=== PATIENT | male | born 1950 | race Caucasian/White ===

== ENCOUNTER 2016-11-28 17:10 | Inpatient (IN) ==
[2016-11-28] MEDS ORDERED: GLUCAGON 1 MG VIAL IM PRN (18:41)
[2016-11-28] MEDS ORDERED: DEXTROSE 50% 25 GM/50 ML VIAL IV PRN (18:41)
[2016-11-28] MEDS: SODIUM CHLORIDE 0.9% 1,000 ML IV SCH (19:16)
[2016-11-28] MEDS: CEFTAROLINE 600 MG in SODIUM CHLORIDE 0.9% 100 ML IV SCH (19:45)
[2016-11-28 19:53] LABS: Basophils % 0.2 % (0.0-0.8); Eosinophils # 0.1 10*3/uL (0.0-0.87); Eosinophils % 1.1 % (0.00-10.9); Hematocrit 34.2 VOL% (42.0-52.0); Hemoglobin 11.6 GM/DL (14.0-18.0); Immature Granulocytes % 0.4 %; Immature Granulocytes Absolute 0.04 #; Lymphocytes # 1.5 10*3/uL (1.4-4.0); Lymphocytes % 14.3 % (21.2-54.2); Mean Corpuscular HGB Conc 33.9 GM/DL (32-36); Mean Corpuscular Hemoglobin 33 PG (27-34); Mean Corpuscular Volume 96.1 FL (87-102); Mean Platelet Volume 9.9 FL (9.6-12.0); Monocytes # 0.7 10*3/uL (0.11-0.8); Monocytes % 6.6 % (1.7-12.7); Neutrophils # 7.9 10*3/uL (1.4-7.4); Neutrophils % 77.4 % (38.7-73.9); Platelet Count 261 T/CUMM (130-400); Red Blood Count 3.56 MC/CUMM (3.8-5.5); Red Cell Distribution Width 11.8 % (9.3-17.3); White Blood Count 10.3 T/CUMM (4-12)
[2016-11-28] MEDS: INSULIN REGULAR 100 UNIT/ML SUBCUT SCH (21:43)
[2016-11-29 05:28] LABS: Calcium 8.3 MG/DL (8.5-10.1); Osmolality,Calculated 284.4 MOS/KG (273-304); Potassium 4.7 MMOL/L (3.5-5.1)
[2016-11-29] MEDS ORDERED: FAMOTIDINE 20 MG TABLET PO ONE (05:53)
[2016-11-29] MEDS: SODIUM CHLORIDE 0.9% 1,000 ML IV SCH (06:22)
[2016-11-29] MEDS: CEFTAROLINE 600 MG in SODIUM CHLORIDE 0.9% 100 ML IV SCH ×2 (06:37→18:07)
--- NOTE | 2016-11-29 07:12 | Ultrasound Report ---
Right lower extremity venous Doppler with kincaid scale, Spectral Doppler and color-flow analysis performed and interpreted. Indication: Right leg pain and swelling. Scanning over the right common femoral vein, superficial femoral vein, greater saphenous vein and popliteal vein demonstrates normal compressibility, color flow, and augmentation. Impression: No evidence of right lower extremity deep venous thrombosis. PROCEDURE INTERPRETED AT [facility] DEPARTMENT OF RADIOLOGY Final Report Signed by: Dr. Maribel White
--- NOTE | 2016-11-29 08:16 | EKG Report ---
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
[2016-11-29] MEDS: INSULIN REGULAR 100 UNIT/ML SUBCUT SCH ×4 (08:25→20:31)
[2016-11-29] MEDS ORDERED: LIDOCAINE 2% 5 ML VIAL ONE (10:37)
[2016-11-29] MEDS ORDERED: PROPOFOL 200 MG/20 ML VIAL IV ONE (10:37)
[2016-11-29] MEDS ORDERED: ONDANSETRON 4 MG/2 ML VIAL ONE (10:37)
--- NOTE | 2016-11-29 11:04 | Operative Note ---
Date of procedure: 11/29/16 Procedure: Dr. Machado operative report Sivakumar Rojo. 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 Description of the procedure after the patient received sedation his right foot was prepped with Hibiclens and draped in usual fashion 1% plain lidocaine is infiltrated for digital block using 10 cc and then amputate the toe just at its junction with the forefoot there is some necrotic tissue at this level this is needed in the region free of the proximal phalanx is amputated up to near its joint but not through the joint. Cultures are taken the toe was sent to pathology hemostasis is adequate although there is bleeding from the skin edges. Wound was irrigated and packed with dry gauze and covered with cast padding blood loss estimated at less than 5 cc sponge counts are correct. Surgeon / Physician: Kirill Machado Results - Labs CBC & BMP: 11/28/16 19:37 11/29/16 03:39 Discharge Plan - Discharge Medications No Action Aspirin [Ecotrin] 81 mg PO BEDTIME Gabapentin Cap/Tab [Neurontin Cap/Tab] 300 mg PO QID Cilostazol 100 mg PO BID Lisinopril 40 mg PO DAILY sitaGLIPtin [Januvia] 100 mg PO DAILY Canagliflozin [Invokana] 300 mg PO DAILY Metformin HCl 1,500 mg PO DAILY W/BREAKFAST Metformin HCl 1,000 mg PO DAILY W/SUPPER Ranitidine Tab [Zantac Tab] 150 mg PO DAILY PRN PRN Reason: Indigestion Atorvastatin [Lipitor] 20 mg PO DAILY Insulin Detemir [Levemir FlexPen] 23 unit SUBCUT DAILY Clopidogrel [Plavix] 75 mg PO DAILY #60 each - Follow Up or Referral - Forms/Instructions
[2016-11-29] MEDS ORDERED: fentaNYL 100 MCG/2 ML VIAL ONE (11:49)
[2016-11-29] MEDS ORDERED: MIDAZOLAM 2 MG/2 ML VIAL ONE (11:49)
[2016-11-29] MEDS ORDERED: KETAMINE 500 MG/10 ML VIAL ONE (11:49)
--- NOTE | 2016-11-29 17:12 | Event Note ---
Russell is awake alert doing well tolerating suffered no active ongoing bleeding.
--- NOTE | 2016-11-29 20:51 | Anesthesia Post-Op ---
Anesthesia Post OP - Post Ansesthetic Evaluation Patient seen in post op: Yes Resp: within normal limits CV: within normal limits Mental: within normal limits Temp: within normal limits [id number]: within normal limits Nausea and Vomiting: within normal limits Pain: within normal limits
[2016-11-30] MEDS: CEFTAROLINE 600 MG in SODIUM CHLORIDE 0.9% 100 ML IV SCH ×2 (06:07→18:32)
[2016-11-30] MEDS: INSULIN REGULAR 100 UNIT/ML SUBCUT SCH ×4 (08:34→21:13)
--- NOTE | 2016-11-30 10:54 | Pathology Report from [facility] ---
ACCESSION # : [id number] PATIENT NAME : Manju Anne ORDERING DR : ANDREW KUMAR MD CLINICAL HX: Gangrene POST-OP DX: Same SPECIMEN INFO: RT 2nd toe GROSS DESCRIPTION: Received in formalin labeled "MANJU ANNE" is a toe and distal metatarsal measuring 4.2 x 1.9 cm. The skin is firm leathery black and gangrenous appearing with skin sloughing present. Also in the specimen container are two red leach tissue fragments measuring together 1.7 x 1 cm. Mixer Slagman gangrenous tissue is submitted in one cassette. DIAGNOSIS FOR MANJU ANNE: RIGHT 2ND TOE, AMPUTATION: Gangrene. SERVICE DATE: 11/29/2016 REPORT DATE: 11/30/2016 PATHOLOGIST: Jennifer Garnett
--- NOTE | 2016-11-30 12:35 | Event Note ---
Mr. Anne is foot looks a bit better today and the wound is roller cleaner and I think will heal with the current dressing regimen. Cultures are showing gram- negative rods we do not have the formal sensitivity at this point. We will keep him until I have a definite sensitivity and then we can look into possible discharge on oral antibiotic.
[2016-11-30] MEDS: SODIUM HYPOCHLORITE 0.25% IRRIG 473 ML BOTTLE TOP SCH (12:45)
[2016-12-01] MEDS: CEFTAROLINE 600 MG in SODIUM CHLORIDE 0.9% 100 ML IV SCH (06:27)
--- NOTE | 2016-12-01 08:45 | Event Note ---
Mr.: 0 for right foot looks much better much less erythema of the amputated second toe is much cleaner industrial and is actually starting to contract. Cultures still are only showing gram-negative rods actually want to wait until I have formal cultures and sensitivities to determine an appropriate home antibiotic perhaps I can get him home tomorrow
[2016-12-01] MEDS: INSULIN REGULAR 100 UNIT/ML SUBCUT SCH ×2 (09:09→11:41)
[2016-12-01] MEDS: SODIUM HYPOCHLORITE 0.25% IRRIG 473 ML BOTTLE TOP SCH (09:10)
--- NOTE | 2016-12-01 10:23 | Discharge Summary ---
Hospital Course - Hospital Course Hospital Course: : Was admitted with an acutely infected and gangrenous right second toe he was placed on Teflaro empirically and had a right second toe amputation on Monday his foot is looking much better his blood sugars are under good control we now have a culture showing Proteus and a microcytic drip with multiple sensitivities. I think at this point in time I can discharge him and will use Cipro for the better coverage from IV to p.o. I have discussed with him wound care and exercise restrictions and plan recovery in follow-up I will see him in the office next week. Specialty Discharge - Follow Up or Referrals Follow up with: Kirill Machado MD [Physician] - Discharge Plan - Discharge Data Disposition: Disch To Home/Self Care Condition at Discharge: Stable Discharge Diet: diabetic diet Activity: increase activity as tolerated, no prolonged standing Hygiene: may shower Weight Bearing at Discharge: weight bear as tolerated, partial weight bearing Driving: not until seen by doctor Contact your physician if you experience:: fever over 101, Redness or swelling, Bleeding - Discharge Medications New Ciprofloxacin Tab [Cipro Tab] 500 mg PO BID #20 tablet HYDROcodone/ACETAMIN 5-325 [Hammond 5-325] 1 tablet PO Q4H PRN #20 tablet PRN Reason: Pain Moderate (4-7) Continue Aspirin [Ecotrin] 81 mg PO BEDTIME Gabapentin Cap/Tab [Neurontin Cap/Tab] 300 mg PO QID Cilostazol 100 mg PO BID Lisinopril 40 mg PO DAILY sitaGLIPtin [Januvia] 100 mg PO DAILY Canagliflozin [Invokana] 300 mg PO DAILY Metformin HCl 1,500 mg PO DAILY W/BREAKFAST Metformin HCl 1,000 mg PO DAILY W/SUPPER Ranitidine Tab [Zantac Tab] 150 mg PO DAILY PRN PRN Reason: Indigestion Atorvastatin [Lipitor] 20 mg PO DAILY Insulin Detemir [Levemir FlexPen] 23 unit SUBCUT DAILY Clopidogrel [Plavix] 75 mg PO DAILY #60 each - Follow Up or Referral Follow Up: Kirill Machado MD [Physician] - 1 Week - Forms/Instructions Exam - Constitutional Vitals: Period Temp Pulse Resp BP Sys/Sawyer Pulse Ox Last 24 Hr 97.1 F-98.7 F 57-69 18-20 118-158/53-73 91-99 Discharge Results Procedures and tests throughout hospitalization: Pending Orders 11/29/16 Abscess Culture Routine Anaerobic Culture Routine Labs on day of discharge: Labs from last 24 hours 12/01/16 11/30/16 11/30/16 06:59 20:18 15:44 POC Glucose 138 H 264 H 219 H 11/30/16 11:24 POC Glucose 188 H Preliminary micro results at discharge 11/29/16 Unknown Abscess Culture - Preliminary Toe - Right Second Proteus mirabilis Gram Positive Cocci Microstrep plus panel 1 DS: Provider Date of admission: 11/28/16 17:20 Primary care physician: . No PCP Attending physician on admission: Kirill Machado MD Discharging clinician: Kirill Machado MD
[2016-12-01 11:58] VITALS: BP 138/60
== END 2016-12-01 12:40 | disposition home or self-care (01) | DRG 256 ==
LOC: N.3E 17:20
PROVIDERS: ADMIT Surgery; ATTEND Surgery

== ENCOUNTER 2018-02-22 16:32 | Inpatient (IN) ==
[2018-02-22] MEDS ORDERED: VANCOMYCIN INJ 1,500 MG in SODIUM CHLORIDE 0.9% 250 ML IV STA (16:52)
[2018-02-22] MEDS ORDERED: PIPERACILLIN/TAZOBACTAM 3,375 MG in SODIUM CHLORIDE 0.9% 100 ML IV STA ×2 (16:52→17:00)
[2018-02-22] MEDS ORDERED: ONDANSETRON 4 MG/2 ML VIAL IV PRN (16:55)
[2018-02-22] MEDS ORDERED: GLUCAGON 1 MG VIAL IM PRN (16:55)
[2018-02-22] MEDS ORDERED: DEXTROSE 50% 25 GM/50 ML VIAL IV PRN (16:55)
[2018-02-22] MEDS ORDERED: ACETAMINOPHEN 325 MG TABLET PO PRN (16:55)
[2018-02-22] MEDS ORDERED: VANCOMYCIN INJ 1,500 MG in SODIUM CHLORIDE 0.9% 500 ML IV STA (17:12)
[2018-02-22] MEDS ORDERED: FAMOTIDINE 20 MG TABLET PO PRN (17:28)
[2018-02-22 18:03] LABS: Alanine Aminotransferase 96 U/L (16-61); Albumin 2.8 G/DL (3.4-5.0); Alkaline Phosphatase 166 U/L (45-117); Aspartate Amino Transferase 42 U/L (0-37); Bilirubin,Total < 0.39 MG/DL (0.2-1.0); Blood Urea Nitrogen 25 MG/DL (7-18); Calcium 9.2 MG/DL (8.5-10.1); Glucose 194 MG/DL (74-106); Osmolality,Calculated 278.1 MOS/KG (273-304); Potassium 4.8 MMOL/L (3.5-5.1); Sodium 135 MMOL/L (136-145); Total Protein 7.8 G/DL (6.4-8.3)
[2018-02-22 18:05] LABS: Basophils % 0.4 % (0.0-0.8); Eosinophils # 0.1 10*3/uL (0.0-0.87); Hemoglobin 11.4 GM/DL (14.0-18.0); Immature Granulocytes % 0.5 %; Immature Granulocytes Absolute 0.05 #; Lymphocytes # 1.8 10*3/uL (1.4-4.0); Lymphocytes % 17.2 % (21.2-54.2); Mean Corpuscular HGB Conc 34.5 GM/DL (32-36); Mean Corpuscular Hemoglobin 32 PG (27-34); Mean Corpuscular Volume 93.5 FL (87-102); Mean Platelet Volume 10.3 FL (9.6-12.0); Monocytes # 0.7 10*3/uL (0.11-0.8); Monocytes % 6.8 % (1.7-12.7); Neutrophils # 7.8 10*3/uL (1.4-7.4); Neutrophils % 74.1 % (38.7-73.9); Platelet Count 341 T/CUMM (130-400); Red Blood Count 3.53 MC/CUMM (3.8-5.5); Red Cell Distribution Width 12.5 % (9.3-17.3); White Blood Count 10.5 T/CUMM (4-12)
[2018-02-22] MEDS: metFORMIN 500 MG TABLET PO SCH (21:58)
[2018-02-22] MEDS: GABAPENTIN 600 MG TABLET PO SCH (22:01)
[2018-02-22] MEDS: ASPIRIN EC 81 MG TABLET PO SCH (22:01)
[2018-02-22] MEDS: INSULIN REGULAR 100 UNIT/ML SUBCUT SCH (22:01)
[2018-02-22] MEDS: INSULIN GLARGINE 100 UNIT/ML SUBCUT SCH (22:02)
[2018-02-23] MEDS: PIPERACILLIN/TAZOBACTAM 3,375 MG in SODIUM CHLORIDE 0.9% 100 ML IV SCH ×3 (01:05→20:36)
[2018-02-23] MEDS: VANCOMYCIN INJ 1,500 MG in SODIUM CHLORIDE 0.9% 500 ML IV SCH ×2 (06:00→16:35)
[2018-02-23] MEDS: GABAPENTIN 600 MG TABLET PO SCH ×2 (08:29→20:37)
[2018-02-23] MEDS: PANTOPRAZOLE 40 MG TABLET PO SCH (08:29)
[2018-02-23] MEDS: INSULIN GLARGINE 100 UNIT/ML SUBCUT SCH ×2 (08:29→20:38)
[2018-02-23] MEDS: INSULIN REGULAR 100 UNIT/ML SUBCUT SCH ×4 (08:29→20:38)
[2018-02-23] MEDS: metFORMIN 500 MG TABLET PO SCH (08:30)
[2018-02-23] MEDS: ATORVASTATIN 20 MG TABLET PO SCH (08:30)
[2018-02-23] MEDS: glipiZIDE 5 MG TABLET PO SCH ×2 (08:30→16:35)
[2018-02-23] MEDS: LISINOPRIL 20 MG TABLET PO SCH (09:00)
[2018-02-23] MEDS ORDERED: MORPHINE 4 MG/1 ML VIAL IV PRN (09:26)
[2018-02-23] MEDS ORDERED: LIDOCAINE 1% 20 ML VIAL ONE (10:40)
[2018-02-23] MEDS ORDERED: BUPIVACAINE MPF 0.25% 30 ML VIAL ONE (10:40)
[2018-02-23] MEDS ORDERED: SEVOFLURANE 1 UNIT/15 MINUTE INH ONE (11:40)
[2018-02-23] MEDS ORDERED: MIDAZOLAM 2 MG/2 ML VIAL ONE (11:40)
[2018-02-23] MEDS ORDERED: PROPOFOL 200 MG/20 ML VIAL IV ONE (11:40)
[2018-02-23] MEDS ORDERED: fentaNYL 100 MCG/2 ML VIAL ONE (11:41)
[2018-02-23] MEDS ORDERED: PHENYLEPHRINE 1 MG/10 ML SYRINGE IV ONE (11:41)
[2018-02-23] MEDS ORDERED: ONDANSETRON 4 MG/2 ML VIAL ONE (11:41)
[2018-02-23] MEDS: SODIUM CHLORIDE 0.9% 1,000 ML IV SCH (14:22)
[2018-02-23] MEDS: ASPIRIN EC 81 MG TABLET PO SCH (20:37)
[2018-02-24] MEDS: SODIUM CHLORIDE 0.9% 1,000 ML IV SCH ×2 (00:17→15:00)
[2018-02-24 05:33] LABS: Basophils % 0.3 % (0.0-0.8); Eosinophils # 0.1 10*3/uL (0.0-0.87); Eosinophils % 2.2 % (0.00-10.9); Hematocrit 31.5 VOL% (42.0-52.0); Hemoglobin 10.8 GM/DL (14.0-18.0); Immature Granulocytes % 0.5 %; Immature Granulocytes Absolute 0.03 #; Lymphocytes # 1.6 10*3/uL (1.4-4.0); Lymphocytes % 27.3 % (21.2-54.2); Mean Corpuscular HGB Conc 34.3 GM/DL (32-36); Mean Corpuscular Hemoglobin 32 PG (27-34); Mean Corpuscular Volume 92.4 FL (87-102); Mean Platelet Volume 10.1 FL (9.6-12.0); Monocytes # 0.5 10*3/uL (0.11-0.8); Monocytes % 7.7 % (1.7-12.7); Neutrophils # 3.7 10*3/uL (1.4-7.4); Platelet Count 271 T/CUMM (130-400); Red Blood Count 3.41 MC/CUMM (3.8-5.5); Red Cell Distribution Width 12.3 % (9.3-17.3)
[2018-02-24] MEDS: VANCOMYCIN INJ 1,500 MG in SODIUM CHLORIDE 0.9% 500 ML IV SCH ×2 (06:00→17:51)
[2018-02-24 06:05] LABS: Albumin 2.5 G/DL (3.4-5.0); Bilirubin,Total 0.5 MG/DL (0.2-1.0); Calcium 8.4 MG/DL (8.5-10.1); Osmolality,Calculated 286.1 MOS/KG (273-304); Potassium 3.8 MMOL/L (3.5-5.1); Total Protein 6.7 G/DL (6.4-8.3)
[2018-02-24] MEDS: LISINOPRIL 20 MG TABLET PO SCH (10:28)
[2018-02-24] MEDS: PANTOPRAZOLE 40 MG TABLET PO SCH (10:28)
[2018-02-24] MEDS: ATORVASTATIN 20 MG TABLET PO SCH (10:28)
[2018-02-24] MEDS: GABAPENTIN 600 MG TABLET PO SCH ×2 (10:28→20:41)
[2018-02-24] MEDS: INSULIN REGULAR 100 UNIT/ML SUBCUT SCH ×4 (10:29→21:08)
[2018-02-24] MEDS: glipiZIDE 5 MG TABLET PO SCH ×2 (10:29→17:51)
[2018-02-24] MEDS: ENOXAPARIN 40 MG/0.4 ML SYRINGE SUBCUT SCH (10:29)
[2018-02-24] MEDS: SODIUM HYPOCHLORITE 0.25% IRRIG 473 ML BOTTLE TOP SCH (10:30)
[2018-02-24] MEDS: INSULIN GLARGINE 100 UNIT/ML SUBCUT SCH ×2 (10:30→20:41)
[2018-02-24] MEDS: PIPERACILLIN/TAZOBACTAM 3,375 MG in SODIUM CHLORIDE 0.9% 100 ML IV SCH ×2 (10:49→23:50)
[2018-02-24] MEDS: ASPIRIN EC 81 MG TABLET PO SCH (20:41)
[2018-02-25] MEDS: VANCOMYCIN INJ 1,500 MG in SODIUM CHLORIDE 0.9% 500 ML IV SCH ×2 (04:44→17:09)
[2018-02-25] MEDS: LISINOPRIL 20 MG TABLET PO SCH (09:59)
[2018-02-25] MEDS: ATORVASTATIN 20 MG TABLET PO SCH (10:00)
[2018-02-25] MEDS: GABAPENTIN 600 MG TABLET PO SCH ×2 (10:00→20:12)
[2018-02-25] MEDS: PANTOPRAZOLE 40 MG TABLET PO SCH (10:00)
[2018-02-25] MEDS: glipiZIDE 5 MG TABLET PO SCH ×2 (10:00→17:08)
[2018-02-25] MEDS: ENOXAPARIN 40 MG/0.4 ML SYRINGE SUBCUT SCH (10:01)
[2018-02-25] MEDS: PIPERACILLIN/TAZOBACTAM 3,375 MG in SODIUM CHLORIDE 0.9% 100 ML IV SCH ×2 (10:15→22:35)
[2018-02-25] MEDS: INSULIN GLARGINE 100 UNIT/ML SUBCUT SCH ×2 (10:15→20:12)
[2018-02-25] MEDS: SODIUM HYPOCHLORITE 0.25% IRRIG 473 ML BOTTLE TOP SCH (10:16)
[2018-02-25] MEDS: INSULIN REGULAR 100 UNIT/ML SUBCUT SCH ×4 (10:16→20:13)
[2018-02-25] MEDS: ASPIRIN EC 81 MG TABLET PO SCH (20:12)
[2018-02-26] MEDS: VANCOMYCIN INJ 1,500 MG in SODIUM CHLORIDE 0.9% 500 ML IV SCH ×2 (05:40→17:22)
[2018-02-26] MEDS: INSULIN REGULAR 100 UNIT/ML SUBCUT SCH ×4 (06:52→22:10)
[2018-02-26] MEDS: GABAPENTIN 600 MG TABLET PO SCH ×2 (09:42→20:04)
[2018-02-26] MEDS: ATORVASTATIN 20 MG TABLET PO SCH (09:42)
[2018-02-26] MEDS: LISINOPRIL 20 MG TABLET PO SCH (09:43)
[2018-02-26] MEDS: ENOXAPARIN 40 MG/0.4 ML SYRINGE SUBCUT SCH (09:43)
[2018-02-26] MEDS: PANTOPRAZOLE 40 MG TABLET PO SCH (09:43)
[2018-02-26] MEDS: glipiZIDE 5 MG TABLET PO SCH ×2 (09:47→18:44)
[2018-02-26] MEDS: SODIUM HYPOCHLORITE 0.25% IRRIG 473 ML BOTTLE TOP SCH (09:50)
[2018-02-26] MEDS: PIPERACILLIN/TAZOBACTAM 3,375 MG in SODIUM CHLORIDE 0.9% 100 ML IV SCH ×2 (10:42→22:14)
[2018-02-26] MEDS: INSULIN GLARGINE 100 UNIT/ML SUBCUT SCH ×2 (12:39→22:25)
[2018-02-26] MEDS: ASPIRIN EC 81 MG TABLET PO SCH (20:04)
[2018-02-27] MEDS: VANCOMYCIN INJ 1,500 MG in SODIUM CHLORIDE 0.9% 500 ML IV SCH (05:07)
[2018-02-27 06:14] LABS: Basophils % 0.3 % (0.0-0.8); Eosinophils # 0.2 10*3/uL (0.0-0.87); Eosinophils % 3.7 % (0.00-10.9); Hemoglobin 10.9 GM/DL (14.0-18.0); Immature Granulocytes % 0.3 %; Immature Granulocytes Absolute 0.02 #; Lymphocytes % 34.5 % (21.2-54.2); Mean Corpuscular HGB Conc 35.2 GM/DL (32-36); Mean Corpuscular Hemoglobin 32 PG (27-34); Mean Corpuscular Volume 90.6 FL (87-102); Mean Platelet Volume 9.8 FL (9.6-12.0); Monocytes # 0.4 10*3/uL (0.11-0.8); Monocytes % 7.1 % (1.7-12.7); Neutrophils # 3.2 10*3/uL (1.4-7.4); Neutrophils % 54.1 % (38.7-73.9); Platelet Count 281 T/CUMM (130-400); Red Blood Count 3.42 MC/CUMM (3.8-5.5); Red Cell Distribution Width 12.4 % (9.3-17.3); White Blood Count 5.9 T/CUMM (4-12)
[2018-02-27 06:32] LABS: Calcium 8.5 MG/DL (8.5-10.1); Osmolality,Calculated 282.8 MOS/KG (273-304); Potassium 3.8 MMOL/L (3.5-5.1)
[2018-02-27] MEDS: ENOXAPARIN 40 MG/0.4 ML SYRINGE SUBCUT SCH (09:29)
[2018-02-27] MEDS: ATORVASTATIN 20 MG TABLET PO SCH (09:30)
[2018-02-27] MEDS: LISINOPRIL 20 MG TABLET PO SCH (09:30)
[2018-02-27] MEDS: glipiZIDE 5 MG TABLET PO SCH ×2 (09:30→17:25)
[2018-02-27] MEDS: GABAPENTIN 600 MG TABLET PO SCH (09:30)
[2018-02-27] MEDS ORDERED: LEVOFLOXACIN 500 MG TABLET PO SCH (09:30)
[2018-02-27] MEDS: PANTOPRAZOLE 40 MG TABLET PO SCH (09:30)
[2018-02-27] MEDS: INSULIN REGULAR 100 UNIT/ML SUBCUT SCH ×3 (09:33→16:30)
[2018-02-27] MEDS: INSULIN GLARGINE 100 UNIT/ML SUBCUT SCH (09:52)
[2018-02-27] MEDS: SODIUM HYPOCHLORITE 0.25% IRRIG 473 ML BOTTLE TOP SCH (12:40)
[2018-02-27 17:31] VITALS: BP 172/76
== END 2018-02-27 16:30 | disposition home health service (06) | DRG 617 ==
LOC: N.EDINP 16:32 → N.ED 16:32 → N.3E 18:57
PROVIDERS: ADMIT Surgery; ATTEND Surgery

== ENCOUNTER 2018-12-04 06:35 | Inpatient (IN) ==
[2018-11-27 11:33] LABS: Basophils % 0.5 % (0.0-0.8); Eosinophils # 0.1 10*3/uL (0.0-0.87); Eosinophils % 1.1 % (0.00-10.9); Hematocrit 37.7 VOL% (42.0-52.0); Hemoglobin 13.4 GM/DL (14.0-18.0); Immature Granulocytes % 0.5 %; Immature Granulocytes Absolute 0.04 #; Lymphocytes # 1.9 10*3/uL (1.4-4.0); Lymphocytes % 22.1 % (21.2-54.2); Mean Corpuscular HGB Conc 35.5 GM/DL (32-36); Mean Corpuscular Volume 93.1 FL (87-102); Mean Platelet Volume 10.3 FL (9.6-12.0); Monocytes % 5.9 % (1.7-12.7); Neutrophils % 69.9 % (38.7-73.9); Platelet Count 204 T/CUMM (130-400); Red Blood Count 4.05 MC/CUMM (3.8-5.5); Red Cell Distribution Width 12.2 % (9.3-17.3); White Blood Count 8.4 T/CUMM (4-12)
[2018-11-27 12:05] LABS: Albumin 3.6 G/DL (3.4-5.0); Bilirubin,Total 0.5 MG/DL (0.2-1.0); Osmolality,Calculated 282.7 MOS/KG (273-304)
[~2018-12-04 06:35] MED LIST: ceFAZolin 1,000 MG in SYRINGE 1 EACH IV ONE
[2018-12-04] MEDS ORDERED: THROMBIN TOPICAL (RECOMBINANT) 5,000 UNIT VIAL TOP ONE (07:29)
[2018-12-04] MEDS ORDERED: LIDOCAINE 1% 20 ML VIAL ONE (07:29)
[2018-12-04] MEDS ORDERED: HEPARIN 5,000 UNIT/1 ML VIAL ONE ×2 (07:29→07:40)
[2018-12-04] MEDS: LACTATED RINGERS 1,000 ML IV SCH (07:45)
[2018-12-04] MEDS ORDERED: ceFAZolin 1,000 MG VIAL ONE (07:54)
[2018-12-04] MEDS ORDERED: HYDROmorphone 2 MG/1 ML VIAL IV PRN (11:21)
[2018-12-04] MEDS ORDERED: ONDANSETRON 4 MG/2 ML VIAL IV PRN (11:21)
[2018-12-04] MEDS ORDERED: FAMOTIDINE 20 MG TABLET PO PRN (11:24)
[2018-12-04] MEDS ORDERED: HEPARIN 10,000 UNIT/10 ML VIAL ONE (11:39)
[2018-12-04] MEDS ORDERED: SEVOFLURANE 1 UNIT/15 MINUTE INH ONE (11:39)
[2018-12-04] MEDS ORDERED: PHENYLEPHRINE DRIP 20 MG/250 ML PREMIX IV ONE (11:39)
[2018-12-04] MEDS ORDERED: PROPOFOL 200 MG/20 ML VIAL IV ONE (11:39)
[2018-12-04] MEDS ORDERED: PHENYLEPHRINE 1 MG/10 ML SYRINGE IV ONE (11:40)
[2018-12-04] MEDS ORDERED: MIDAZOLAM 2 MG/2 ML VIAL ONE (11:40)
[2018-12-04] MEDS ORDERED: ROCURONIUM 100 MG/10 ML VIAL IV ONE (11:40)
[2018-12-04] MEDS ORDERED: ACETAMINOPHEN 1,000 MG/100 ML VIAL IV ONE (11:40)
[2018-12-04] MEDS ORDERED: SUCCINYLCHOLINE 200 MG/10 ML VIAL ONE (11:40)
[2018-12-04] MEDS ORDERED: fentaNYL 100 MCG/2 ML VIAL ONE (11:40)
[2018-12-04] MEDS ORDERED: GLYCOPYRROLATE 0.4 MG/2 ML VIAL ONE (11:40)
[2018-12-04] MEDS ORDERED: NEOSTIGMINE 10 MG/10 ML VIAL ONE (11:40)
[2018-12-04] MEDS ORDERED: ONDANSETRON 4 MG/2 ML VIAL ONE (11:40)
[2018-12-04] MEDS ORDERED: LACTATED RINGERS 1,000 ML IV ONE (11:41)
[2018-12-04] MEDS: glipiZIDE 5 MG TABLET PO SCH (16:56)
[2018-12-04] MEDS: CILOSTAZOL 100 MG TABLET PO SCH (21:25)
[2018-12-04] MEDS: DOCUSATE SODIUM 100 MG CAPSULE PO SCH (21:25)
[2018-12-04] MEDS: GABAPENTIN 300 MG CAPSULE PO SCH (21:26)
[2018-12-04] MEDS: ASPIRIN EC 81 MG TABLET PO SCH (21:26)
[2018-12-04] MEDS: INSULIN GLARGINE 100 UNIT/ML SUBCUT SCH (21:27)
[2018-12-04] MEDS: ACETAMINOPHEN 500 MG TABLET PO SCH (23:19)
[2018-12-05 05:28] LABS: Hemoglobin 10.9 GM/DL (14.0-18.0)
[2018-12-05 05:31] LABS: Calcium 8.1 MG/DL (8.5-10.1); Osmolality,Calculated 285.4 MOS/KG (273-304)
[2018-12-05] MEDS: ENOXAPARIN 40 MG/0.4 ML SYRINGE SUBCUT SCH (06:45)
[2018-12-05] MEDS: glipiZIDE 5 MG TABLET PO SCH ×2 (08:30→17:30)
[2018-12-05] MEDS: INSULIN GLARGINE 100 UNIT/ML SUBCUT SCH ×2 (08:44→21:05)
[2018-12-05] MEDS: LISINOPRIL 20 MG TABLET PO SCH (08:44)
[2018-12-05] MEDS: DOCUSATE SODIUM 100 MG CAPSULE PO SCH ×2 (08:44→21:05)
[2018-12-05] MEDS: GABAPENTIN 300 MG CAPSULE PO SCH ×2 (08:44→21:05)
[2018-12-05] MEDS: CILOSTAZOL 100 MG TABLET PO SCH ×2 (08:44→21:05)
[2018-12-05] MEDS: ACETAMINOPHEN 500 MG TABLET PO SCH (08:45)
[2018-12-05] MEDS: CLOPIDOGREL 75 MG TABLET PO SCH (08:45)
[2018-12-05] MEDS: SIMVASTATIN 40 MG TABLET PO SCH (08:45)
[2018-12-05] MEDS: COENZYME Q10 100 MG CAPSULE PO SCH (08:46)
[2018-12-05] MEDS ORDERED: ASPIRIN CHEW 81 MG TABLET PO SCH (09:00)
[2018-12-05] MEDS: LACTATED RINGERS 1,000 ML IV SCH (16:07)
[2018-12-05] MEDS: ASPIRIN EC 81 MG TABLET PO SCH (21:05)
[2018-12-06] MEDS: ENOXAPARIN 40 MG/0.4 ML SYRINGE SUBCUT SCH (06:20)
[2018-12-06 08:01] VITALS: BP 172/76
[2018-12-06] MEDS: glipiZIDE 5 MG TABLET PO SCH (08:30)
[2018-12-06] MEDS: INSULIN GLARGINE 100 UNIT/ML SUBCUT SCH (08:59)
[2018-12-06] MEDS: GABAPENTIN 300 MG CAPSULE PO SCH (09:00)
[2018-12-06] MEDS: SIMVASTATIN 40 MG TABLET PO SCH (09:00)
[2018-12-06] MEDS: LISINOPRIL 20 MG TABLET PO SCH (09:00)
[2018-12-06] MEDS: CILOSTAZOL 100 MG TABLET PO SCH (09:00)
[2018-12-06] MEDS: ACETAMINOPHEN 500 MG TABLET PO SCH (09:02)
[2018-12-06] MEDS: DOCUSATE SODIUM 100 MG CAPSULE PO SCH (09:02)
[2018-12-06] MEDS: COENZYME Q10 100 MG CAPSULE PO SCH (09:03)
[2018-12-06] MEDS: CLOPIDOGREL 75 MG TABLET PO SCH (09:03)
== END 2018-12-06 10:30 | disposition home or self-care (01) | DRG 253 ==
LOC: N.SDSINP 06:35 → N.3E 12:27
PROVIDERS: ADMIT Surgery; ATTEND Surgery

== ENCOUNTER 2020-08-31 17:03 | Inpatient (IN) ==
[2020-08-31] MEDS ORDERED: INFLUENZA VIRUS VACCINE 0.5 ML SYRINGE IM ONE (18:52)
[2020-08-31] MEDS ORDERED: DEXTROSE 50% 25 GM/50 ML VIAL IV PRN (19:01)
[2020-08-31] MEDS ORDERED: GLUCAGON 1 MG VIAL IM PRN (19:01)
[2020-08-31 19:50] LABS: Basophils % 0.4 % (0.0-0.8); Eosinophils # 0.1 10*3/uL (0.0-0.87); Eosinophils % 0.8 % (0.00-10.9); Hematocrit 31.3 VOL% (42.0-52.0); Hemoglobin 10.5 GM/DL (14.0-18.0); Immature Granulocytes % 0.5 %; Immature Granulocytes Absolute 0.05 #; Lymphocytes # 2.3 10*3/uL (1.4-4.0); Lymphocytes % 21.2 % (21.2-54.2); Mean Corpuscular HGB Conc 33.5 GM/DL (32-36); Mean Corpuscular Volume 95.4 FL (87-102); Mean Platelet Volume 9.6 FL (9.6-12.0); Monocytes % 5.8 % (1.7-12.7); Neutrophils % 71.3 % (38.7-73.9); Platelet Count 366 T/CUMM (130-400); Red Blood Count 3.28 MC/CUMM (3.8-5.5); Red Cell Distribution Width 13.2 % (9.3-17.3); White Blood Count 11.1 T/CUMM (4-12)
[2020-08-31 20:06] LABS: INR 1.1; PT Patient Result 12.2 SECS (9.8-11.9)
[2020-08-31 20:15] LABS: Albumin 2.3 G/DL (3.4-5.0); Bilirubin,Total 0.6 MG/DL (0.2-1.0); Calcium 8.4 MG/DL (8.5-10.1); Osmolality,Calculated 276.5 MOS/KG (273-304); Potassium 4.4 MMOL/L (3.5-5.1); Total Protein 7.4 G/DL (6.4-8.3)
[2020-08-31] MEDS: INSULIN REGULAR 100 UNIT/ML SUBCUT SCH (21:03)
[2020-08-31] MEDS: PIPERACILLIN/TAZOBACTAM 3,375 MG in SODIUM CHLORIDE 0.9% 100 ML IV SCH (21:06)
[2020-09-01] MEDS: PIPERACILLIN/TAZOBACTAM 3,375 MG in SODIUM CHLORIDE 0.9% 100 ML IV SCH ×3 (05:45→20:55)
[2020-09-01 05:51] LABS: Basophils % 0.5 % (0.0-0.8); Eosinophils # 0.1 10*3/uL (0.0-0.87); Eosinophils % 1.5 % (0.00-10.9); Hematocrit 29.7 VOL% (42.0-52.0); Hemoglobin 10.4 GM/DL (14.0-18.0); Immature Granulocytes % 0.5 %; Immature Granulocytes Absolute 0.04 #; Lymphocytes # 1.9 10*3/uL (1.4-4.0); Lymphocytes % 25.7 % (21.2-54.2); Mean Corpuscular Volume 93.4 FL (87-102); Mean Platelet Volume 9.7 FL (9.6-12.0); Monocytes % 7.1 % (1.7-12.7); Neutrophils % 64.7 % (38.7-73.9); Platelet Count 303 T/CUMM (130-400); Red Blood Count 3.18 MC/CUMM (3.8-5.5); Red Cell Distribution Width 12.9 % (9.3-17.3); White Blood Count 7.6 T/CUMM (4-12)
[2020-09-01 05:57] LABS: INR 1.2; PT Patient Result 12.4 SECS (9.8-11.9)
[2020-09-01 06:12] LABS: Alanine Aminotransferase 93 U/L (16-61); Albumin 2.4 G/DL (3.4-5.0); Alkaline Phosphatase 189 U/L (45-117); Aspartate Amino Transferase 41 U/L (0-37); Bilirubin,Total < 0.39 MG/DL (0.2-1.0); Blood Urea Nitrogen 23 MG/DL (7-18); Calcium 8.7 MG/DL (8.5-10.1); Carbon Dioxide 27 MMOL/L (21-32); Estimated Glom Filtration Rate 64 ML/MIN; Glucose 299 MG/DL (74-106); Osmolality,Calculated 287.8 MOS/KG (273-304); Potassium 4.4 MMOL/L (3.5-5.1); Sodium 137 MMOL/L (136-145); Total Protein 7.5 G/DL (6.4-8.3)
[2020-09-01] MEDS ORDERED: ONDANSETRON 4 MG/2 ML VIAL IV PRN (09:11)
[2020-09-01] MEDS ORDERED: ACETAMINOPHEN 325 MG TABLET PO PRN (09:11)
[2020-09-01] MEDS ORDERED: BISACODYL 5 MG TABLET PO PRN (09:11)
[2020-09-01] MEDS: INSULIN REGULAR 100 UNIT/ML SUBCUT SCH ×4 (09:21→20:55)
[2020-09-01] MEDS ORDERED: ERGOCALCIFEROL 50,000 UNIT CAPSULE PO SCH (09:30)
[2020-09-01] MEDS: glipiZIDE 5 MG TABLET PO SCH (16:22)
[2020-09-01] MEDS: INSULIN GLARGINE 100 UNIT/ML SUBCUT SCH (19:09)
[2020-09-01] MEDS: GABAPENTIN 600 MG TABLET PO SCH (20:53)
[2020-09-01] MEDS: cilostazoL 100 MG TABLET PO SCH (20:54)
[2020-09-01] MEDS: metFORMIN 500 MG TABLET PO SCH (21:05)
[2020-09-02] MEDS: ENOXAPARIN 30 MG/0.3 ML SYRINGE SUBCUT SCH ×2 (03:05→16:39)
[2020-09-02] MEDS: PIPERACILLIN/TAZOBACTAM 3,375 MG in SODIUM CHLORIDE 0.9% 100 ML IV SCH ×3 (05:03→20:41)
[2020-09-02] MEDS: cilostazoL 100 MG TABLET PO SCH ×2 (09:23→20:39)
[2020-09-02] MEDS: ROSUVASTATIN 20 MG TABLET PO SCH (09:24)
[2020-09-02] MEDS: lisinopriL 20 MG TABLET PO SCH (09:24)
[2020-09-02] MEDS: PANTOPRAZOLE 40 MG TABLET PO SCH (09:25)
[2020-09-02] MEDS: CLOPIDOGREL 75 MG TABLET PO SCH (09:25)
[2020-09-02] MEDS: glipiZIDE 5 MG TABLET PO SCH ×2 (09:25→16:38)
[2020-09-02] MEDS: MULTIVITAMIN (CENTRUM) TABLET PO SCH (09:25)
[2020-09-02] MEDS: ACETAMINOPHEN 500 MG TABLET PO SCH (09:26)
[2020-09-02] MEDS: metFORMIN 500 MG TABLET PO SCH ×2 (09:26→20:42)
[2020-09-02] MEDS: GABAPENTIN 300 MG CAPSULE PO SCH (09:26)
[2020-09-02] MEDS: KRILL OIL 500 MG PO SCH (09:26)
[2020-09-02] MEDS: ESCITALOPRAM 10 MG TABLET PO SCH (09:26)
[2020-09-02] MEDS: INSULIN GLARGINE 100 UNIT/ML SUBCUT SCH ×2 (09:27→18:26)
[2020-09-02] MEDS: INSULIN REGULAR 100 UNIT/ML SUBCUT SCH ×4 (09:27→20:51)
[2020-09-02] MEDS: GABAPENTIN 600 MG TABLET PO SCH (20:40)
[2020-09-03] MEDS: ENOXAPARIN 30 MG/0.3 ML SYRINGE SUBCUT SCH ×2 (03:13→16:41)
[2020-09-03] MEDS: PIPERACILLIN/TAZOBACTAM 3,375 MG in SODIUM CHLORIDE 0.9% 100 ML IV SCH ×3 (06:14→20:44)
[2020-09-03] MEDS: PANTOPRAZOLE 40 MG TABLET PO SCH (09:36)
[2020-09-03] MEDS: KRILL OIL 500 MG PO SCH (10:21)
[2020-09-03] MEDS ORDERED: BUPIVACAINE 0.5% 50 ML VIAL ONE (10:54)
[2020-09-03] MEDS: MULTIVITAMIN (CENTRUM) TABLET PO SCH (12:12)
[2020-09-03] MEDS: ACETAMINOPHEN 500 MG TABLET PO SCH (12:12)
[2020-09-03] MEDS: CLOPIDOGREL 75 MG TABLET PO SCH (12:13)
[2020-09-03] MEDS: cilostazoL 100 MG TABLET PO SCH ×2 (12:13→20:43)
[2020-09-03] MEDS: metFORMIN 500 MG TABLET PO SCH ×2 (12:13→20:43)
[2020-09-03] MEDS: ROSUVASTATIN 20 MG TABLET PO SCH (12:13)
[2020-09-03] MEDS: lisinopriL 20 MG TABLET PO SCH (12:13)
[2020-09-03] MEDS: ESCITALOPRAM 10 MG TABLET PO SCH (12:13)
[2020-09-03] MEDS: glipiZIDE 5 MG TABLET PO SCH ×2 (12:13→16:41)
[2020-09-03] MEDS: GABAPENTIN 300 MG CAPSULE PO SCH (12:14)
[2020-09-03] MEDS: INSULIN GLARGINE 100 UNIT/ML SUBCUT SCH ×2 (12:14→18:02)
[2020-09-03] MEDS: INSULIN REGULAR 100 UNIT/ML SUBCUT SCH ×4 (12:20→20:43)
[2020-09-03] MEDS: GABAPENTIN 600 MG TABLET PO SCH (20:42)
[2020-09-04] MEDS: ENOXAPARIN 30 MG/0.3 ML SYRINGE SUBCUT SCH ×2 (03:16→16:27)
[2020-09-04] MEDS: PIPERACILLIN/TAZOBACTAM 3,375 MG in SODIUM CHLORIDE 0.9% 100 ML IV SCH ×3 (05:36→20:30)
[2020-09-04] MEDS: ESCITALOPRAM 10 MG TABLET PO SCH (08:55)
[2020-09-04] MEDS: metFORMIN 500 MG TABLET PO SCH ×2 (08:55→20:28)
[2020-09-04] MEDS: MULTIVITAMIN (CENTRUM) TABLET PO SCH (08:56)
[2020-09-04] MEDS: ROSUVASTATIN 20 MG TABLET PO SCH (08:56)
[2020-09-04] MEDS: GABAPENTIN 300 MG CAPSULE PO SCH (08:56)
[2020-09-04] MEDS: ACETAMINOPHEN 500 MG TABLET PO SCH (08:56)
[2020-09-04] MEDS: KRILL OIL 500 MG PO SCH (08:57)
[2020-09-04] MEDS: glipiZIDE 5 MG TABLET PO SCH ×2 (08:57→16:27)
[2020-09-04] MEDS: lisinopriL 20 MG TABLET PO SCH (08:57)
[2020-09-04] MEDS: PANTOPRAZOLE 40 MG TABLET PO SCH (08:57)
[2020-09-04] MEDS: cilostazoL 100 MG TABLET PO SCH ×2 (08:57→20:34)
[2020-09-04] MEDS: INSULIN GLARGINE 100 UNIT/ML SUBCUT SCH ×2 (09:03→18:41)
[2020-09-04] MEDS: CLOPIDOGREL 75 MG TABLET PO SCH (09:04)
[2020-09-04] MEDS: INSULIN REGULAR 100 UNIT/ML SUBCUT SCH ×4 (09:09→20:29)
[2020-09-04 12:51] LABS: Basophils % 0.2 % (0.0-0.8); Eosinophils # 0.1 10*3/uL (0.0-0.87); Hematocrit 30.2 VOL% (42.0-52.0); Immature Granulocytes % 0.3 %; Immature Granulocytes Absolute 0.03 #; Lymphocytes # 1.9 10*3/uL (1.4-4.0); Lymphocytes % 21.7 % (21.2-54.2); Mean Corpuscular HGB Conc 33.1 GM/DL (32-36); Mean Corpuscular Volume 96.2 FL (87-102); Mean Platelet Volume 9.5 FL (9.6-12.0); Monocytes % 5.7 % (1.7-12.7); Neutrophils % 71.1 % (38.7-73.9); Platelet Count 356 T/CUMM (130-400); Red Blood Count 3.14 MC/CUMM (3.8-5.5); Red Cell Distribution Width 13.2 % (9.3-17.3); White Blood Count 8.9 T/CUMM (4-12)
[2020-09-04 13:06] LABS: Calcium 8.7 MG/DL (8.5-10.1); Potassium 4.5 MMOL/L (3.5-5.1)
[2020-09-04] MEDS: GABAPENTIN 600 MG TABLET PO SCH (20:29)
[2020-09-05] MEDS: ENOXAPARIN 30 MG/0.3 ML SYRINGE SUBCUT SCH ×2 (03:30→15:05)
[2020-09-05] MEDS: PIPERACILLIN/TAZOBACTAM 3,375 MG in SODIUM CHLORIDE 0.9% 100 ML IV SCH ×3 (06:03→20:53)
[2020-09-05] MEDS: cilostazoL 100 MG TABLET PO SCH ×2 (09:14→20:52)
[2020-09-05] MEDS: ROSUVASTATIN 20 MG TABLET PO SCH (09:14)
[2020-09-05] MEDS: lisinopriL 20 MG TABLET PO SCH (09:15)
[2020-09-05] MEDS: ESCITALOPRAM 10 MG TABLET PO SCH (09:15)
[2020-09-05] MEDS: metFORMIN 500 MG TABLET PO SCH ×2 (09:15→20:52)
[2020-09-05] MEDS: ACETAMINOPHEN 500 MG TABLET PO SCH (09:15)
[2020-09-05] MEDS: PANTOPRAZOLE 40 MG TABLET PO SCH (09:15)
[2020-09-05] MEDS: GABAPENTIN 300 MG CAPSULE PO SCH (09:16)
[2020-09-05] MEDS: MULTIVITAMIN (CENTRUM) TABLET PO SCH (09:17)
[2020-09-05] MEDS: CLOPIDOGREL 75 MG TABLET PO SCH (09:17)
[2020-09-05] MEDS: INSULIN GLARGINE 100 UNIT/ML SUBCUT SCH ×2 (09:17→18:53)
[2020-09-05] MEDS: KRILL OIL 500 MG PO SCH (09:21)
[2020-09-05] MEDS: glipiZIDE 5 MG TABLET PO SCH ×2 (09:22→17:06)
[2020-09-05] MEDS: INSULIN REGULAR 100 UNIT/ML SUBCUT SCH ×4 (09:22→20:53)
[2020-09-05] MEDS: GABAPENTIN 600 MG TABLET PO SCH (20:56)
[2020-09-06] MEDS: PIPERACILLIN/TAZOBACTAM 3,375 MG in SODIUM CHLORIDE 0.9% 100 ML IV SCH ×3 (04:33→20:44)
[2020-09-06] MEDS: ENOXAPARIN 30 MG/0.3 ML SYRINGE SUBCUT SCH ×2 (04:33→17:17)
[2020-09-06 07:57] LABS: Basophils % 0.4 % (0.0-0.8); Eosinophils # 0.1 10*3/uL (0.0-0.87); Eosinophils % 1.6 % (0.00-10.9); Hemoglobin 10.5 GM/DL (14.0-18.0); Immature Granulocytes % 0.3 %; Immature Granulocytes Absolute 0.02 #; Mean Corpuscular HGB Conc 33.9 GM/DL (32-36); Mean Corpuscular Volume 95.7 FL (87-102); Mean Platelet Volume 9.6 FL (9.6-12.0); Monocytes % 5.8 % (1.7-12.7); Neutrophils % 65.9 % (38.7-73.9); Platelet Count 333 T/CUMM (130-400); Red Blood Count 3.24 MC/CUMM (3.8-5.5); Red Cell Distribution Width 13.3 % (9.3-17.3); White Blood Count 7.5 T/CUMM (4-12)
[2020-09-06] MEDS: cilostazoL 100 MG TABLET PO SCH ×2 (08:26→20:43)
[2020-09-06] MEDS: ROSUVASTATIN 20 MG TABLET PO SCH (08:26)
[2020-09-06] MEDS: GABAPENTIN 300 MG CAPSULE PO SCH (08:26)
[2020-09-06] MEDS: INSULIN GLARGINE 100 UNIT/ML SUBCUT SCH ×2 (08:27→18:22)
[2020-09-06] MEDS: CLOPIDOGREL 75 MG TABLET PO SCH (08:27)
[2020-09-06] MEDS: MULTIVITAMIN (CENTRUM) TABLET PO SCH (08:27)
[2020-09-06] MEDS: ACETAMINOPHEN 500 MG TABLET PO SCH (08:27)
[2020-09-06] MEDS: lisinopriL 20 MG TABLET PO SCH (08:27)
[2020-09-06] MEDS: PANTOPRAZOLE 40 MG TABLET PO SCH (08:27)
[2020-09-06] MEDS: metFORMIN 500 MG TABLET PO SCH ×2 (08:27→20:43)
[2020-09-06] MEDS: ESCITALOPRAM 10 MG TABLET PO SCH (08:27)
[2020-09-06] MEDS: glipiZIDE 5 MG TABLET PO SCH ×2 (08:27→17:17)
[2020-09-06] MEDS: INSULIN REGULAR 100 UNIT/ML SUBCUT SCH ×4 (08:28→20:43)
[2020-09-06] MEDS: KRILL OIL 500 MG PO SCH (08:28)
[2020-09-06 08:47] LABS: Osmolality,Calculated 275.7 MOS/KG (273-304); Potassium 3.9 MMOL/L (3.5-5.1)
[2020-09-06] MEDS: GABAPENTIN 600 MG TABLET PO SCH (20:47)
[2020-09-07] MEDS: ENOXAPARIN 30 MG/0.3 ML SYRINGE SUBCUT SCH (04:12)
[2020-09-07] MEDS: PIPERACILLIN/TAZOBACTAM 3,375 MG in SODIUM CHLORIDE 0.9% 100 ML IV SCH (04:12)
[2020-09-07] MEDS: lisinopriL 20 MG TABLET PO SCH (09:06)
[2020-09-07] MEDS: ROSUVASTATIN 20 MG TABLET PO SCH (09:07)
[2020-09-07] MEDS: MULTIVITAMIN (CENTRUM) TABLET PO SCH (09:08)
[2020-09-07] MEDS: ACETAMINOPHEN 500 MG TABLET PO SCH (09:08)
[2020-09-07] MEDS: ESCITALOPRAM 10 MG TABLET PO SCH (09:08)
[2020-09-07] MEDS: CLOPIDOGREL 75 MG TABLET PO SCH (09:08)
[2020-09-07] MEDS: cilostazoL 100 MG TABLET PO SCH (09:08)
[2020-09-07] MEDS: PANTOPRAZOLE 40 MG TABLET PO SCH (09:08)
[2020-09-07] MEDS: GABAPENTIN 300 MG CAPSULE PO SCH (09:09)
[2020-09-07] MEDS: metFORMIN 500 MG TABLET PO SCH (09:10)
[2020-09-07] MEDS: glipiZIDE 5 MG TABLET PO SCH (09:10)
[2020-09-07] MEDS: INSULIN REGULAR 100 UNIT/ML SUBCUT SCH ×2 (09:10→12:45)
[2020-09-07] MEDS: INSULIN GLARGINE 100 UNIT/ML SUBCUT SCH (09:11)
[2020-09-07 09:15] VITALS: BP 124/84
[2020-09-07] MEDS: KRILL OIL 500 MG PO SCH (09:34)
[2020-09-07] MEDS ORDERED: INFLUENZA VIRUS VACCINE 0.5 ML SYRINGE IM ONE (10:31)
== END 2020-09-07 12:00 | disposition home health service (06) | DRG 240 ==
LOC: N.TELEN 18:23
PROVIDERS: ADMIT Surgery; ATTEND Surgery

== ENCOUNTER 2020-09-28 15:34 | Inpatient (IN) ==
[2020-09-28 17:44] LABS: Basophils % 0.2 % (0.0-0.8); Immature Granulocytes % 0.5 %; Immature Granulocytes Absolute 0.06 #; Lymphocytes # 1.1 10*3/uL (1.4-4.0); Lymphocytes % 8.6 % (21.2-54.2); Mean Corpuscular HGB Conc 34.4 GM/DL (32-36); Mean Corpuscular Volume 92.5 FL (87-102); Mean Platelet Volume 10.1 FL (9.6-12.0); Monocytes % 6.1 % (1.7-12.7); Neutrophils % 84.6 % (38.7-73.9); Platelet Count 258 T/CUMM (130-400); Red Blood Count 3.46 MC/CUMM (3.8-5.5); Red Cell Distribution Width 13.2 % (9.3-17.3); White Blood Count 12.9 T/CUMM (4-12)
[2020-09-28 18:07] LABS: Albumin 2.8 G/DL (3.4-5.0); Bilirubin,Total 0.8 MG/DL (0.2-1.0); Calcium 9.3 MG/DL (8.5-10.1); Osmolality,Calculated 271.1 MOS/KG (273-304); Potassium 4.6 MMOL/L (3.5-5.1); Total Protein 8.5 G/DL (6.4-8.3)
[2020-09-29] MEDS ORDERED: DEXTROSE 50% 25 GM/50 ML VIAL IV PRN (10:46)
[2020-09-29] MEDS ORDERED: GLUCAGON 1 MG VIAL IM PRN (11:17)
[2020-09-29] MEDS: INSULIN REGULAR 100 UNIT/ML SUBCUT SCH ×3 (11:42→22:17)
[2020-09-29] MEDS: PIPERACILLIN/TAZOBACTAM 3,375 MG in SODIUM CHLORIDE 0.9% 100 ML IV SCH ×2 (11:43→18:49)
[2020-09-29] MEDS ORDERED: ERGOCALCIFEROL 50,000 UNIT CAPSULE PO SCH (12:00)
[2020-09-29] MEDS ORDERED: fentaNYL 100 MCG/2 ML VIAL ONE (14:21)
[2020-09-29] MEDS ORDERED: propofoL 200 MG/20 ML VIAL IV ONE (14:21)
[2020-09-29] MEDS ORDERED: MIDAZOLAM 2 MG/2 ML VIAL ONE (14:21)
[2020-09-29] MEDS ORDERED: LIDOCAINE 2% 5 ML VIAL ONE (14:21)
[2020-09-29] MEDS ORDERED: LACTATED RINGERS 1,000 ML IV SCH (14:30)
[2020-09-29] MEDS ORDERED: PHENYLEPHRINE 1 MG/10 ML SYRINGE IV ONE (14:44)
[2020-09-29] MEDS ORDERED: SEVOFLURANE 1 UNIT/15 MINUTE INH ONE ×2 (14:45→15:01)
[2020-09-29] MEDS ORDERED: ONDANSETRON 4 MG/2 ML VIAL ONE (14:45)
[2020-09-29] MEDS: glipiZIDE 5 MG TABLET PO SCH (16:46)
[2020-09-29] MEDS: metFORMIN 500 MG TABLET PO SCH (22:16)
[2020-09-29] MEDS: GABAPENTIN 600 MG TABLET PO SCH (22:16)
[2020-09-29] MEDS: cilostazoL 100 MG TABLET PO SCH (22:16)
[2020-09-29] MEDS: INSULIN GLARGINE 100 UNIT/ML SUBCUT SCH (22:22)
[2020-09-30] MEDS: PIPERACILLIN/TAZOBACTAM 3,375 MG in SODIUM CHLORIDE 0.9% 100 ML IV SCH ×3 (04:02→18:30)
[2020-09-30] MEDS: INSULIN REGULAR 100 UNIT/ML SUBCUT SCH ×4 (08:37→20:23)
[2020-09-30] MEDS: GABAPENTIN 300 MG CAPSULE PO SCH (10:24)
[2020-09-30] MEDS: MULTIVITAMIN (CENTRUM) TABLET PO SCH (10:24)
[2020-09-30] MEDS: ROSUVASTATIN 20 MG TABLET PO SCH (10:24)
[2020-09-30] MEDS: lisinopriL 20 MG TABLET PO SCH (10:24)
[2020-09-30] MEDS: cilostazoL 100 MG TABLET PO SCH ×2 (10:24→20:23)
[2020-09-30] MEDS: CLOPIDOGREL 75 MG TABLET PO SCH (10:25)
[2020-09-30] MEDS: glipiZIDE 5 MG TABLET PO SCH ×2 (10:25→16:43)
[2020-09-30] MEDS: ESCITALOPRAM 10 MG TABLET PO SCH (10:25)
[2020-09-30] MEDS: PANTOPRAZOLE 40 MG TABLET PO SCH (10:26)
[2020-09-30] MEDS: INSULIN GLARGINE 100 UNIT/ML SUBCUT SCH ×2 (10:26→20:23)
[2020-09-30] MEDS: metFORMIN 500 MG TABLET PO SCH ×2 (10:33→20:22)
[2020-09-30] MEDS: KRILL OIL 500 MG PO SCH (11:38)
[2020-09-30] MEDS ORDERED: TUBERCULIN SKIN TEST 0.1 ML SYRINGE INTRADERM ONE (15:00)
[2020-09-30] MEDS: GABAPENTIN 600 MG TABLET PO SCH (20:23)
[2020-10-01] MEDS: PIPERACILLIN/TAZOBACTAM 3,375 MG in SODIUM CHLORIDE 0.9% 100 ML IV SCH ×2 (03:22→13:13)
[2020-10-01] MEDS ORDERED: GLUCAGON 1 MG VIAL IM PRN ×2 (09:31→10:28)
[2020-10-01] MEDS ORDERED: DEXTROSE 50% 25 GM/50 ML VIAL IV PRN ×2 (09:31→10:28)
[2020-10-01] MEDS: glipiZIDE 5 MG TABLET PO SCH ×2 (09:51→16:41)
[2020-10-01] MEDS: INSULIN REGULAR 100 UNIT/ML SUBCUT SCH ×4 (10:00→21:11)
[2020-10-01] MEDS: MULTIVITAMIN (CENTRUM) TABLET PO SCH (10:00)
[2020-10-01] MEDS: INSULIN GLARGINE 100 UNIT/ML SUBCUT SCH ×2 (10:01→21:12)
[2020-10-01] MEDS: cilostazoL 100 MG TABLET PO SCH ×2 (10:01→21:09)
[2020-10-01] MEDS: metFORMIN 500 MG TABLET PO SCH ×2 (10:01→21:10)
[2020-10-01] MEDS: ROSUVASTATIN 20 MG TABLET PO SCH (10:01)
[2020-10-01] MEDS: GABAPENTIN 300 MG CAPSULE PO SCH (10:01)
[2020-10-01] MEDS: CLOPIDOGREL 75 MG TABLET PO SCH (10:01)
[2020-10-01] MEDS: ESCITALOPRAM 10 MG TABLET PO SCH (10:01)
[2020-10-01] MEDS: lisinopriL 20 MG TABLET PO SCH (10:02)
[2020-10-01] MEDS: PANTOPRAZOLE 40 MG TABLET PO SCH (10:02)
[2020-10-01] MEDS: KRILL OIL 500 MG PO SCH (10:11)
[2020-10-01] MEDS: SULFAMETHOX/TRIMETHOPRIM 800-160 MG TABLET PO SCH (21:10)
[2020-10-01] MEDS: GABAPENTIN 600 MG TABLET PO SCH (21:16)
[2020-10-02 07:18] VITALS: BP 123/50
[2020-10-02] MEDS: INSULIN REGULAR 100 UNIT/ML SUBCUT SCH (07:49)
[2020-10-02] MEDS: INSULIN GLARGINE 100 UNIT/ML SUBCUT SCH (09:46)
[2020-10-02] MEDS: ESCITALOPRAM 10 MG TABLET PO SCH (09:47)
[2020-10-02] MEDS: SULFAMETHOX/TRIMETHOPRIM 800-160 MG TABLET PO SCH (09:47)
[2020-10-02] MEDS: MULTIVITAMIN (CENTRUM) TABLET PO SCH (09:47)
[2020-10-02] MEDS: GABAPENTIN 300 MG CAPSULE PO SCH (09:48)
[2020-10-02] MEDS: ROSUVASTATIN 20 MG TABLET PO SCH (09:49)
[2020-10-02] MEDS: lisinopriL 20 MG TABLET PO SCH (09:50)
[2020-10-02] MEDS: cilostazoL 100 MG TABLET PO SCH (09:50)
[2020-10-02] MEDS: CLOPIDOGREL 75 MG TABLET PO SCH (09:50)
[2020-10-02] MEDS: metFORMIN 500 MG TABLET PO SCH (09:50)
[2020-10-02] MEDS: glipiZIDE 5 MG TABLET PO SCH (09:51)
[2020-10-02] MEDS: PANTOPRAZOLE 40 MG TABLET PO SCH (09:51)
== END 2020-10-02 11:48 | disposition swing bed (61) | DRG 240 ==
LOC: N.ED 15:34 → N.SDSINP 18:18 → N.3E 09-29 20:36
PROVIDERS: ADMIT Surgery; ATTEND Surgery

== ENCOUNTER 2020-10-12 15:21 | Inpatient (IN) ==
[2020-10-12] MEDS ORDERED: ACETAMINOPHEN 325 MG TABLET PO PRN (15:55)
[2020-10-12] MEDS ORDERED: ONDANSETRON 4 MG/2 ML VIAL IV PRN (15:55)
[2020-10-12] MEDS ORDERED: ERGOCALCIFEROL PO SCH ×2 (16:00→21:00)
[2020-10-12] MEDS: LACTATED RINGERS 1,000 ML IV SCH (18:30)
[2020-10-12 18:40] LABS: Basophils % 0.2 % (0.0-0.8); Eosinophils % 0.2 % (0.00-10.9); Hematocrit 31.2 VOL% (42.0-52.0); Hemoglobin 10.2 GM/DL (14.0-18.0); Immature Granulocytes % 0.4 %; Immature Granulocytes Absolute 0.05 #; Lymphocytes # 1.4 10*3/uL (1.4-4.0); Lymphocytes % 11.3 % (21.2-54.2); Mean Corpuscular HGB Conc 32.7 GM/DL (32-36); Mean Corpuscular Volume 94.5 FL (87-102); Mean Platelet Volume 9.5 FL (9.6-12.0); Monocytes % 4.9 % (1.7-12.7); Platelet Count 570 T/CUMM (130-400); Red Cell Distribution Width 12.9 % (9.3-17.3); White Blood Count 12.2 T/CUMM (4-12)
[2020-10-12 19:05] LABS: Albumin 2.2 G/DL (3.4-5.0); Bilirubin,Total 0.4 MG/DL (0.2-1.0); Calcium 9.3 MG/DL (8.5-10.1); Osmolality,Calculated 272.4 MOS/KG (273-304); Potassium 4.6 MMOL/L (3.5-5.1); Total Protein 9.1 G/DL (5.0-7.5)
[2020-10-12] MEDS: glipiZIDE 5 MG TABLET PO SCH (19:44)
[2020-10-12] MEDS: INSULIN GLARGINE 100 UNIT/ML SUBCUT SCH (21:13)
[2020-10-12] MEDS: ERGOCALCIFEROL PO SCH (21:14)
[2020-10-12] MEDS: VANCOMYCIN INJ 1,500 MG in SODIUM CHLORIDE 0.9% 500 ML IV SCH (21:14)
[2020-10-12] MEDS: cilostazoL 100 MG TABLET PO SCH (21:14)
[2020-10-12] MEDS: SULFAMETHOX/TRIMETHOPRIM 800-160 MG TABLET PO SCH (21:14)
[2020-10-12] MEDS: GABAPENTIN 600 MG TABLET PO SCH (21:14)
[2020-10-13] MEDS ORDERED: ROSUVASTATIN 20 MG TABLET PO SCH (09:00)
[2020-10-13] MEDS: SULFAMETHOX/TRIMETHOPRIM 800-160 MG TABLET PO SCH (09:44)
[2020-10-13] MEDS: glipiZIDE 5 MG TABLET PO SCH ×2 (09:44→17:30)
[2020-10-13] MEDS: KRILL OIL 500 MG PO SCH (09:44)
[2020-10-13] MEDS: CLOPIDOGREL 75 MG TABLET PO SCH (09:45)
[2020-10-13] MEDS: lisinopriL 20 MG TABLET PO SCH (09:45)
[2020-10-13] MEDS: MULTIVITAMIN MINERALS LUTEIN PO SCH (09:45)
[2020-10-13] MEDS: INSULIN GLARGINE 100 UNIT/ML SUBCUT SCH ×2 (09:45→21:11)
[2020-10-13] MEDS: ESCITALOPRAM 10 MG TABLET PO SCH (09:45)
[2020-10-13] MEDS: GABAPENTIN 300 MG CAPSULE PO SCH (09:45)
[2020-10-13] MEDS: ENOXAPARIN 40 MG/0.4 ML SYRINGE SUBCUT SCH (09:46)
[2020-10-13] MEDS: PANTOPRAZOLE 40 MG TABLET PO SCH (09:46)
[2020-10-13 09:57] LABS: Calcium 8.9 MG/DL (8.5-10.1); Osmolality,Calculated 278.4 MOS/KG (273-304); Potassium 4.7 MMOL/L (3.5-5.1)
[2020-10-13] MEDS ORDERED: LIDOCAINE 2% 5 ML VIAL ONE (11:13)
[2020-10-13] MEDS ORDERED: propofoL 200 MG/20 ML VIAL IV ONE (11:13)
[2020-10-13] MEDS ORDERED: MIDAZOLAM 2 MG/2 ML VIAL ONE (11:14)
[2020-10-13] MEDS ORDERED: fentaNYL 100 MCG/2 ML VIAL ONE (11:14)
[2020-10-13] MEDS ORDERED: ETOMIDATE 40 MG/20 ML VIAL IV ONE (11:59)
[2020-10-13] MEDS ORDERED: PHENYLEPHRINE 1 MG/10 ML SYRINGE IV ONE (12:17)
[2020-10-13] MEDS ORDERED: GLUCAGON 1 MG VIAL IM PRN (14:07)
[2020-10-13] MEDS ORDERED: DEXTROSE 50% 25 GM/50 ML VIAL IV PRN (14:07)
[2020-10-13] MEDS: cilostazoL 100 MG TABLET PO SCH ×2 (15:42→21:12)
[2020-10-13] MEDS: VANCOMYCIN INJ 1,500 MG in SODIUM CHLORIDE 0.9% 500 ML IV SCH (16:17)
[2020-10-13] MEDS ORDERED: INSULIN LISPRO 100 UNIT/ML SUBCUT SCH (16:30)
[2020-10-13] MEDS: INSULIN REGULAR 100 UNIT/ML SUBCUT SCH (21:12)
[2020-10-13] MEDS: GABAPENTIN 600 MG TABLET PO SCH (21:16)
[2020-10-14 05:16] LABS: Basophils % 0.3 % (0.0-0.8); Eosinophils % 0.5 % (0.00-10.9); Hematocrit 23.2 VOL% (42.0-52.0); Hemoglobin 7.6 GM/DL (14.0-18.0); Immature Granulocytes % 0.4 %; Immature Granulocytes Absolute 0.03 #; Lymphocytes # 1.6 10*3/uL (1.4-4.0); Lymphocytes % 20.1 % (21.2-54.2); Mean Corpuscular HGB Conc 32.8 GM/DL (32-36); Mean Corpuscular Volume 93.2 FL (87-102); Mean Platelet Volume 9.7 FL (9.6-12.0); Neutrophils % 71.7 % (38.7-73.9); Platelet Count 353 T/CUMM (130-400); Red Blood Count 2.49 MC/CUMM (3.8-5.5); Red Cell Distribution Width 12.7 % (9.3-17.3)
[2020-10-14 05:40] LABS: Calcium 8.1 MG/DL (8.5-10.1); Osmolality,Calculated 280.1 MOS/KG (273-304); Potassium 4.6 MMOL/L (3.5-5.1)
[2020-10-14 05:56] LABS: % Iron Saturation 28.3 % (18-50); Ferritin 471.6 ng/ml (26-388)
[2020-10-14] MEDS: LACTATED RINGERS 1,000 ML IV SCH (06:31)
[2020-10-14 08:44] LABS: Albumin 1.7 G/DL (3.4-5.0); Bilirubin,Direct 0.13 MG/DL (0.0-0.20); Bilirubin,Indirect 0.3 MG/DL (0.0-1.0); Bilirubin,Total 0.4 MG/DL (0.2-1.0); Total Protein 7.1 G/DL (5.0-7.5)
[2020-10-14] MEDS: INSULIN GLARGINE 100 UNIT/ML SUBCUT SCH ×2 (09:34→21:26)
[2020-10-14] MEDS: lisinopriL 20 MG TABLET PO SCH (09:34)
[2020-10-14] MEDS: ERGOCALCIFEROL PO SCH (09:34)
[2020-10-14] MEDS: GABAPENTIN 300 MG CAPSULE PO SCH (09:34)
[2020-10-14] MEDS: CLOPIDOGREL 75 MG TABLET PO SCH (09:34)
[2020-10-14] MEDS: INSULIN REGULAR 100 UNIT/ML SUBCUT SCH ×3 (09:34→15:47)
[2020-10-14] MEDS: ESCITALOPRAM 10 MG TABLET PO SCH (09:35)
[2020-10-14] MEDS: PANTOPRAZOLE 40 MG TABLET PO SCH (09:35)
[2020-10-14] MEDS: ENOXAPARIN 40 MG/0.4 ML SYRINGE SUBCUT SCH (09:35)
[2020-10-14] MEDS: cilostazoL 100 MG TABLET PO SCH ×2 (09:35→21:25)
[2020-10-14] MEDS: glipiZIDE 5 MG TABLET PO SCH ×2 (09:35→15:47)
[2020-10-14] MEDS: VANCOMYCIN INJ 1,500 MG in SODIUM CHLORIDE 0.9% 500 ML IV SCH (09:36)
[2020-10-14] MEDS: MULTIVITAMIN MINERALS LUTEIN PO SCH (10:29)
[2020-10-14] MEDS: KRILL OIL 500 MG PO SCH (10:29)
[2020-10-14] MEDS ORDERED: SODIUM CHLORIDE 0.9% 1,000 ML IV PRN (12:08)
[2020-10-14] MEDS: INSULIN LISPRO 100 UNIT/ML SUBCUT SCH ×2 (16:54→21:26)
[2020-10-14] MEDS: GABAPENTIN 600 MG TABLET PO SCH (21:25)
[2020-10-14 23:16] LABS: Hematocrit 28.3 VOL% (42.0-52.0)
[2020-10-14 23:17] LABS: Hemoglobin 9.3 GM/DL (14.0-18.0)
[2020-10-15] MEDS: VANCOMYCIN INJ 1,500 MG in SODIUM CHLORIDE 0.9% 500 ML IV SCH (02:59)
[2020-10-15] MEDS: LACTATED RINGERS 1,000 ML IV SCH (08:01)
[2020-10-15 09:08] LABS: Albumin 1.8 G/DL (3.4-5.0); Bilirubin,Direct 0.17 MG/DL (0.0-0.20); Bilirubin,Indirect 0.3 MG/DL (0.0-1.0); Bilirubin,Total 0.5 MG/DL (0.2-1.0); Total Protein 7.5 G/DL (5.0-7.5)
[2020-10-15] MEDS: GABAPENTIN 300 MG CAPSULE PO SCH (09:19)
[2020-10-15] MEDS: lisinopriL 20 MG TABLET PO SCH (09:19)
[2020-10-15] MEDS: ESCITALOPRAM 10 MG TABLET PO SCH (09:19)
[2020-10-15] MEDS: cilostazoL 100 MG TABLET PO SCH (09:19)
[2020-10-15] MEDS: CLOPIDOGREL 75 MG TABLET PO SCH (09:19)
[2020-10-15] MEDS: INSULIN GLARGINE 100 UNIT/ML SUBCUT SCH (09:20)
[2020-10-15] MEDS: glipiZIDE 5 MG TABLET PO SCH (09:20)
[2020-10-15] MEDS: PANTOPRAZOLE 40 MG TABLET PO SCH (09:20)
[2020-10-15] MEDS: KRILL OIL 500 MG PO SCH (09:21)
[2020-10-15] MEDS: INSULIN LISPRO 100 UNIT/ML SUBCUT SCH ×2 (09:21→11:30)
[2020-10-15] MEDS: ENOXAPARIN 40 MG/0.4 ML SYRINGE SUBCUT SCH (09:22)
[2020-10-15] MEDS: MULTIVITAMIN MINERALS LUTEIN PO SCH (09:22)
[2020-10-15 11:09] VITALS: BP 154/69
== END 2020-10-15 14:28 | DRG 982 ==
LOC: N.3E 15:45
PROVIDERS: ADMIT Surgery; ATTEND Surgery